=== PATIENT | female | born 1935 | race Caucasian/White ===

== ENCOUNTER 2018-05-12 00:47 | Inpatient (IN) | payer MEDICARE, MEDICAID, SELFPAY ==
[2018-05-12] VITALS (18 sets, daily range): BP systolic 116–150; BP diastolic 50–125; PULSE 74–99; RESP 16–24; TEMP 36.4–37.1; O2SAT 92–98; BMI 37.5; BMI 36.8; BMI 36.9
--- NOTE | 2018-05-12 01:19 | ED.VIS.GEN ---
History of Present Illness Chief Complaint: Chest Pain Informant: Patient Onset: Hours - 2 Context: Sudden Onset - at rest Quality: Indigestion. Nonpleuritic. Nonradiating. Location: Substernal Current Severity: Mild Maximum Severity: Moderate Worsened by: Nothing Relieved by: Nothing Associated Symptoms: Palpitations skipping/racing, dyspnea Narrative: Patient states she was on the way here from [place] by car. She started having symptoms suddenly, the first symptoms she noticed was heart skipping and racing, which she has never felt before. She has a history of A. fib and does not have any symptoms from that. She felt near syncopal but did not lose consciousness. This was closely followed by substernal chest discomfort and dyspnea. The palpitations were a single episode, lasted several minutes, and resolved, and after that the chest discomfort and dyspnea improved but have not resolved. She has had swelling in her legs for the past 2 weeks or so, she has a history of heart failure but does not know her ejection fraction, she does not have a pacemaker or defibrillator. She does not get any medical care here, she is from [place]. She is on a full aspirin daily, no anticoagulants. She has COPD and for the past week she has been coughing more, bringing up more sputum, that is yellow, green, white at times. No fevers. No GI symptoms. - Past Medical History (1) COPD (chronic obstructive pulmonary disease) Status: Chronic (2) CHF (congestive heart failure) Status: Chronic (3) CAD (coronary artery disease), [place] coronary artery Status: Chronic (4) HTN (hypertension) Status: Chronic Past Medical History - Allergies and Home Meds Allergies/Adverse Reactions: Allergies erythromycin base Adverse Reaction (Verified 05/12/18 02:19) Upset Stomach heparin Adverse Reaction (Verified 05/12/18 00:52) Other Primary Care Physician: [facility],Out of [Primary Care Provider] - Alcohol: None Drugs: None Review of Systems All systems negative except as indicated General: Reports: Malaise - generally weak acutely, - - near-syncopal. Denies: Chills, Fever Cardiovascular: Reports: Chest pain, Palpitations, Heart racing Respiratory: Reports: Dyspnea, Cough, Sputum, Orthopnea - chronic Gastrointestinal: Denies: Abdominal pain, Nausea, Vomiting, Diarrhea Genitourinary: Denies: Dysuria, Hematuria Musculoskeletal: Reports: Swelling. Denies: Neck pain, Back pain, Extremity Pain Neurological: Denies: Headache, Weakness, Parasthesia Physical Exam Vital Signs/Narrative: Vital Signs Temp Pulse Resp BP Pulse Ox 05/12/18 00:49 98.6 F 97 18 150/125 H 92 Inital Vital Signs reviewed: Yes General: Well nourished, Well developed Head: Normocephalic, Atraumatic Eyes: Perrl, EOMI ENT: Moist mucous membranes, No rhinorrhea Neck: Supple, Nontender Cardiovascular: No murmurs, Irregular, Tachycardia Respiratory: No distress, Chest nontender, Rhonchi - bibasilar, Diminished - throughout, symmetric Abdomen: Soft, Nontender, Nondistended, Normal bowel sounds Back: Nontender, Normal Inspection Extremities: Nontender - incl no calf tend, Edema - 2+ BLE Skin: Normal color, No rash Neurological: Alert, Oriented x3, Cranial nerves II-XII grossly intact, Normal Strength, Normal Sensation Psychological: Normal affect Diagnostic/Tx/Re-eval Impressions Chest X-Ray 05/12/18 01:12 IMPRESSION: No acute findings in the lungs. Mild increased interstitial markings in the right lung Electronically Signed: Peng Hobbs, at 2:18 EDT Tel , Service support , 05/12/18 01:12 Chest 1 View (Portable) [RAD] Stat Laboratory Results 05/12/18 05/12/18 Range/Units 01:45 01:45 WBC 7.9 (4.4-11.0) K/mm3 RBC 4.13 L (4.2-5.4) M/mm3 Hgb 10.3 L (12.0-15.0) g/dl Hct 34.8 L (37-47) % MCV 84.3 (81-99) fL MCH 24.9 L (27.0-32.0) pg MCHC 29.6 L (32-36) g/gl RDW 18.6 H (11.6-14.6) % RDW Differential 57.2 H (35.1-43.9) fl Plt Count 117 L (150-450) K/mm3 MPV 10.7 (6.2-12.0) fl Immature Gran % (Auto) 0.100 (0.0-0.9) % Neut % (Auto) 42.8 L (47-70) % Lymph % (Auto) 33.9 (19-41) % [place] % (Auto) 20.7 H (0-10) % Eos % (Auto) 2.4 (0-5) % Baso % (Auto) 0.1 (0-1) % Absolute Neuts (auto) 3.4 (2.0-7.7) X10^3/uL Absolute Lymphs (auto) 2.68 (0.83-4.51) X10^3/ul Total Counted Not Reportable Differential Comment SCANNED Sodium 136 (136-145) mmol/L Potassium 2.8 L (3.5-5.1) mmol/L Chloride 93 L (98-107) mmol/L Carbon Dioxide 36.0 H (21.0-32.0) mmol/L Anion Gap 7 (5-15) BUN 52 H (7-18) mg/dL Creatinine 1.41 H (0.55-1.02) mg/dL Estim Creat Clear Calc 26.11 ml/min Est GFR (MDRD) Af Amer 46 L (>60) mL/min Est GFR (MDRD) Non-Af 38 L (>60) mL/min BUN/Creatinine Ratio 36.9 H (10-20) RATIO Glucose 188 H (74-106) mg/dL Calcium 9.2 (8.5-10.1) mg/dL Troponin I 0.038 (<0.045) ng/mL - Rhythm Strip Rhythm Strip: A-fib Rate: 110 Ectopy: PVC(s) - EKG Initial EKG Interpretation: No Acute Injury Pattern, Atrial Fibrillation, Non-Specific ST Changes, - - ant Q waves. nml axis. Prior: No Prior - Medical Decision Making Patient remains clinically and hemodynamically stable. Her labs show a slightly elevated troponin, there is no acute injury pattern on the EKG which shows chronic A. fib, borderline RVR but not to the point where we needed to treat it aggressively to keep her rate under control. She is feeling much better with regards to how she was earlier. I think admission is warranted. Discussed with Dr. Richter who is amenable. She also has a COPD exacerbation given her history for the past week, so she was given an aerosol which helped a little with regards to her dyspnea, however her acute symptoms tonight sounded associated with palpitations and a near syncopal episode. Certainly a transient dysrhythmia other than her chronic A. fib is in the differential, as it is simply RVR. Will be admitted for further evaluation. ED Disposition - Plan for ED Patient: Disposition: Acute Care Hospital [facility] Chief Complaint: Chest Pain Diagnosis: Near syncope, Palpitations, Chronic atrial fibrillation, CHF (congestive heart failure), CAD (coronary artery disease), false pass coronary artery, Renal insufficiency, Hypokalemia Referrals: [facility],Out of [Primary Care Provider] -
--- NOTE | 2018-05-12 01:23 | ED.RN ---
NO OLD EKG'S IN MUSE
[2018-05-12] MEDS: Albuterol 2.5 MG/3 ML VIAL.NEB. INHALATION (01:25)
[2018-05-12] MEDS: Aspirin 81 MG TAB.CHEW 324 MG PO (01:46)
[2018-05-12] MEDS: Furosemide 40 MG/4 ML Vial 20 MG IV (01:49)
[2018-05-12] MEDS: 0.9% Normal Saline 1,000 ML 15 ML IV (01:57)
[2018-05-12 02:05] LABS: Absolute Lymphocyte Count 2.68 X10^3/ul (0.83-4.51); Absolute Neutrophil Count 3.4 X10^3/uL (2.0-7.7); Basophil# 0.01 X10^3/uL; Basophil% 0.1 % (0-1); Differential Indicated SCAN CRITERIA MET; Eosinophil# 0.19 X10^3/uL; Eosinophils% 2.4 % (0-5); Hematocrit 34.8 % (37-47); Hemoglobin 10.3 g/dl (12.0-15.0); Lymphocyte # 2.68 X10^3/ul (4.0); Lymphocyte % 33.9 % (19-41); Mean Corp Hgb Conc 29.6 g/gl (32-36); Mean Corpuscular Hgb 24.9 pg (27.0-32.0); Mean Corpuscular Volume 84.3 fL (81-99); Mean Platelet Vol. 10.7 fl (6.2-12.0); Monocyte# 1.64 X10^3/uL; Monocyte% 20.7 % (0-10); Neutrophil # 3.38 X10^3/uL (2.7-7.7); Neutrophil % 42.8 % (47-70); POSITIVE COUNT NO; POSITIVE DIFFERENTIAL YES; POSITIVE MORPHOLOGY NO; Platelet Count 117 K/mm3 (150-450); RBC Distribution Width CV 18.6 % (11.6-14.6); RBC Distribution Width SD 57.2 fl (35.1-43.9); Red Blood Count 4.13 M/mm3 (4.2-5.4); White Blood Count 7.9 K/mm3 (4.4-11.0)
[2018-05-12 02:19] LABS: Anion Gap 7 (5-15); BUN 52 mg/dL (7-18); BUN/Creat Ratio 36.9 RATIO (10-20); Calcium,Total 9.2 mg/dL (8.5-10.1); Chloride 93 mmol/L (98-107); Creatinine, Serum 1.41 mg/dL (0.55-1.02); EST Glomerular Filtration Rate 38 mL/min (>60); Est Glom Filt Rate - Afr Amer 46 mL/min (>60); Estimated Creatinine Clearance 26.11 ml/min; Glucose 188 mg/dL (74-106); Potassium 2.8 mmol/L (3.5-5.1); Sodium Level 136 mmol/L (136-145)
[2018-05-12 02:26] LABS: Differential Comment SCANNED
--- NOTE | 2018-05-12 02:53 | PCM.HP.STD ---
History of Present Illness Date of Admission: 05/12/18 Chief Complaint: chest pain The patient is a 82 year old female patient with a past medical history of coronary artery disease, obesity, osteoarthritis and COPD who presents to the ER with chest pain. She was being transported from [place] by her cousins to live here in [place] at a new [facility] [facility]. She experienced heart palpitations and lightheadedness on the trip so they diverted from to the ER for evaluation .She developed chest pain that responded to nitro glycerin times one. The patient is a questionable historian but does have medical records on disk with her. She is unable to tell me when her last heart catheterization was but she does admit to previous PR and chronic atrial fibrillation for which she only takes aspirin. She will be admitted and cycle cardiac markers. Past Medical History Past Medical History (Chronic Problems): Chronic Problems COPD (chronic obstructive pulmonary disease) (Chronic) CHF (congestive heart failure) (Chronic) CAD (coronary artery disease), [place] coronary artery (Chronic) HTN (hypertension) (Chronic) Allergies erythromycin base Adverse Reaction (Verified 05/12/18 02:19) Upset Stomach heparin Adverse Reaction (Verified 05/12/18 00:52) Other Home Medications: Ambulatory Orders Medication Instructions Recorded Acetaminophen [Tylenol Extra 500 mg PO Q4H PRN PRN 05/12/18 Strength] Albuterol IH (ProAir) [Proair Hfa 2 puff INHALATION Q4H PRN PRN 05/12/18 (SP)Vent Pts] Aspirin 325 mg PO DAILY@0800 05/12/18 Atorvastatin Calcium [Lipitor] 40 mg PO QHS 05/12/18 Carboxymethylcellulose Sodium 2 each OP DAILY PRN 05/12/18 [Refresh Celluvisc] Carvedilol [Coreg] 12.5 mg PO BID 05/12/18 Cholecalciferol (Vitamin D3) 2,000 unit PO DAILY 05/12/18 [Vitamin D3] D-Mannose [Mannose] 500 mg PO DAILY 05/12/18 Docusate Sodium [Colace] 50 mg PO DAILY 05/12/18 Estrogens, Conjugated [Premarin] 1 dose VAGINAL 05/12/18 Fluticasone/Salmeterol [Advair 1 each IH BID 05/12/18 250-50 Diskus] Glucosamine/MSM/Chondroitin A 1 each PO DAILY 05/12/18 [Glucosamine Chondroit MSM Tab] Ipratropium/Albuterol Sulfate 3 ml INHALATION Q6H.RT PRN 05/12/18 [Duoneb] Lansoprazole [Prevacid] 30 mg PO DAILY 05/12/18 Levothyroxine [Synthroid] 25 mcg PO DAILY 05/12/18 Metolazone [Zaroxolyn] 2.5 mg PO QWEEK 05/12/18 Paroxetine HCl 40 mg PO DAILY 05/12/18 Polyethylene Glycol 3350 [Miralax] 17 gm PO DAILY 05/12/18 Potassium Chloride [Klor-Con M20] 20 meq PO DAILY 05/12/18 Spironolactone [Aldactone] 25 mg PO DAILY 05/12/18 Tiotropium [place] [Spiriva] 18 mcg IH DAILY 05/12/18 Torsemide [Demadex] 60 mg PO BID 05/12/18 traMADol [Ultram (G)] 100 mg PO Q6H PRN PRN 05/12/18 Smoking Status: Former smoker Alcohol: None Drugs: None - *Family History Maternal History Items: No pertinent history Review of Systems Constitutional: Reports: Weakness. Denies: Chills, Fever, Weight Change HEENT: Denies: Head Aches, Sinus Congestion, Sinus Drainage Cardiovascular: Reports: Chest Pain, Light Headedness, Palpitations Respiratory: Denies: Cough, Shortness of breath at rest, Sputum production Gastrointestinal: Denies: Abdominal Pain, Nausea, Vomiting Genitourinary: Reports: Incontinence. Denies: Dysuria Musculoskeletal: Denies: Joint Pain, Joint Tenderness Skin: Denies: Rash, Wounds Neurological: Denies: Numbness, Tingling, Focal weakness Psychiatric: Denies: Anxiety, Depression, Homicidal Ideations, Suicidal Ideations Hematologic/ Lymphatic: Denies: Easy Bruising, Easy Bleeding VTE Information - Inpt Only VTE Present on Admission: No VTE Mechan Device Prophylaxis: SCD's VTE Pharm Prophylaxis ordered?: No - Physical Exam General: Alert, Oriented x3, Cooperative HEENT: Atraumatic, Normocephalic Neck: Supple Lungs: Clear to auscultation, Normal air movement, No rhonchi, No wheeze Cardiovascular: Normal S1, Normal S2, No murmurs, Irregular Rate Abdomen: Bowel Sounds Present, Soft, Non Tender, Obese Extremities: Capillary Refill Less than 3 Seconds, Edema - 1+lower ext edema Skin: No rashes, No breakdown Musculoskeletal: No Tenderness to Palpation of Joints or Extremities Neurological: Neuro grossly intact Psych/Mental Status: Normal Affect, Appropriate Vital Signs Temp Pulse Resp BP Pulse Ox 98.6 F 90 24 H 121/56 H 93 05/12/18 00:49 05/12/18 01:49 05/12/18 01:25 05/12/18 01:49 05/12/18 01:25 Oxygen Flow Rate (L/min) 5 Oxygen Delivery Method Nasal Cannula Weight: 218 lb 11.177 oz Body Mass Index (BMI) 37.5 Laboratory Tests Past 24 Hrs 05/12/18 05/12/18 05/12/18 01:45 01:45 01:45 WBC 7.9 RBC 4.13 L Hgb 10.3 L Hct 34.8 L MCV 84.3 MCH 24.9 L MCHC 29.6 L RDW 18.6 H RDW Differential 57.2 H Plt Count 117 L MPV 10.7 Immature Gran % (Auto) 0.100 Neut % (Auto) 42.8 L Lymph % (Auto) 33.9 [place] % (Auto) 20.7 H Eos % (Auto) 2.4 Baso % (Auto) 0.1 Absolute Neuts (auto) 3.4 Absolute Lymphs (auto) 2.68 Total Counted Not Reportable Differential Comment SCANNED Sodium 136 Potassium 2.8 L Chloride 93 L Carbon Dioxide 36.0 H Anion Gap 7 BUN 52 H Creatinine 1.41 H Estim Creat Clear Calc 26.11 Est GFR (MDRD) Af Amer 46 L Est GFR (MDRD) Non-Af 38 L BUN/Creatinine Ratio 36.9 H Glucose 188 H Calcium 9.2 Troponin I 0.038 B-Natriuretic Peptide Pending Assessment/Plan Assessment - chest pain Chronic conditions - COPD - Obesity - hypertension - CAD - atrial fibrillation Plan - admit to progressive care unit - tramadol, oxygen, aspirin and nitro prn - cycle cardiac markers - consult Dr. Cooley - NPO except meds with sips pending consult - IV normal saline at 75cc/hour - continue routine medications - LMWH for DVT prophylaxis Code Visit Inpatient E&M: 77509 Init Hosp L3
--- NOTE | 2018-05-12 03:13 | NURSING ---
05/12/18 0303 ER primer charger called, ok to send pt.
[2018-05-12 03:15] LABS: BNP,B-Type NATRIURETIC PEPTIDE 202.7 pg/mL (0-100)
[2018-05-12 05:40] LABS: International Normalized Ratio 1.3; Prothrombin Time (Protime)PT. 16.1 SECONDS (11.7-14.9)
[2018-05-12 05:45] LABS: Partial Thromboplast Time 37.1 Seconds (24.1-36.2)
[2018-05-12 06:15] LABS: ALB/GLOB Ratio 0.9 RATIO (0.9-2.4); AST(SGOT) 18 U/L (15-37); Alanine Aminotransfer ALT/SGPT 13 U/L (13-56); Albumin, Serum 3.6 g/dL (3.2-5.0); Alkaline Phosphatase 105 U/L (45-117); Anion Gap 12 (5-15); BUN 51 mg/dL (7-18); BUN/Creat Ratio 36.2 RATIO (10-20); Calcium,Total 9.1 mg/dL (8.5-10.1); Chloride 93 mmol/L (98-107); Cholesterol 108 mg/dL (200); Creatinine, Serum 1.41 mg/dL (0.55-1.02); EST Glomerular Filtration Rate 38 mL/min (>60); Est Glom Filt Rate - Afr Amer 46 mL/min (>60); Estimated Creatinine Clearance 26.11 ml/min; Globulin 4.1 g/dL (2.2-4.2); Glucose 158 mg/dL (74-106); High Density Lipoprotein 44 mg/dL; Potassium 2.9 mmol/L (3.5-5.1); Protein, Total 7.7 g/dL (6.4-8.2); Sodium Level 138 mmol/L (136-145); Thyroid Stim Hormone (TSH) 4.76 uIU/mL (0.358-3.74); Triglycerides 85 mg/dL; Very Low Density Lipoprotein 17 mg/dL (5-40)
[2018-05-12] MEDS: Levothyroxine 25 MCG TABLET PO (06:42)
--- NOTE | 2018-05-12 07:27 | PCM.CONS.C ---
Reason for Consult Date of Consultation: 05/12/18 Reason for Consultation: Chest pain History of Present Illness: The patient is a 82 year old F with a known significant cardiac history who was recently been followed up at the clinic in [place]. She was relocating to [place]. On the current drive here she developed some chest pain for which she took a sublingual nitroglycerin which resolved it. She was mildly short of breath and she decided to present to the emergency room where based on history sheet it was decided to admit her. Her past medical history is significant for chronic persistent atrial fibrillation for which she only takes aspirin. She had previously been on Coumadin but did not want to take it. She also has a history of hypertension, ischemic cardiomyopathy, coronary artery disease not amenable to intervention, pulmonary hypertension, hyperlipidemia, type 2 diabetes, morbid obesity and nonhealing ulcers due to venous stasis. She was last seen in the heart failure clinic in [place] on April 07, 2018. Has not had any recent palpitations or paroxysmal nocturnal dyspnea. She has been compliant with her medications. Her pertinent past cardiac history is significant for an echocardiogram in January of this year which demonstrated an ejection fraction of 55-60% the right ventricle was moderately hypokinetic. There was mild mitral regurgitation and right ventricular systolic pressures were noted to be over 60 mmHg. In October of last year she underwent a right and left heart catheterization. The right ventricular systolic pressures were noted to be 72/14, pulmonary artery pressures of 76/35 mmHg and a pulmonary wedge pressure of 19 mmHg with a V wave of 23 mmHg. Her cardiac catheterization demonstrated left main coronary artery which was large and gave rise to a heavily calcified left anterior descending artery. There was 30-40% proximal stenosis and 60% distal stenosis. The left anterior descending artery was a large vessel which was heavily calcified proximal vessel had severe disease in the mid segment was totally occluded. The first diagonal branch had collateral flow with severe diffuse disease. The ramus intermedius was a medium-sized vessel with a 90% proximal stenosis in the circumflex artery was a large vessel giving rise to 2 obtuse marginal branches after which it continued in the AV groove branch. The ostium of the circumflex artery had a 50% stenosis the first OM had a 30% proximal stenosis and the second 150% stenosis. The right coronary artery was a large dominant vessel with a 40% ostial stenosis in the mid segment had diffuse calcific disease. It was felt that the patient was not a candidate for percutaneous intervention and was referred to CT surgery but was not thought to be a great candidate and medical therapy was chosen as the option. This was discussed once again with the patient who is quite knowledgeable with her history as well as her therapy and is in agreement with this. [] Past Medical History Allergies/Adverse Reactions: Allergies erythromycin base Adverse Reaction (Verified 05/12/18 02:19) Upset Stomach fentanyl Adverse Reaction (Verified 05/12/18 02:54) Other SEVERE LETHARGY heparin Adverse Reaction (Verified 05/12/18 00:52) Other Home Medications: Ambulatory Orders Medication Instructions Recorded Acetaminophen [Tylenol Extra 500 mg PO Q4H PRN PRN 05/12/18 Strength] Albuterol IH (ProAir) [Proair Hfa 2 puff INHALATION Q4H PRN PRN 05/12/18 (SP)Vent Pts] Aspirin 325 mg PO DAILY@0800 05/12/18 Atorvastatin Calcium [Lipitor] 40 mg PO QHS 05/12/18 Carboxymethylcellulose Sodium 2 each OP DAILY PRN 05/12/18 [Refresh Celluvisc] Carvedilol [Coreg] 12.5 mg PO BID 05/12/18 Cholecalciferol (Vitamin D3) 2,000 unit PO DAILY 05/12/18 [Vitamin D3] D-Mannose [Mannose] 500 mg PO DAILY 05/12/18 Docusate Sodium [Colace] 50 mg PO DAILY 05/12/18 Estrogens, Conjugated [Premarin] 1 dose VAGINAL 05/12/18 Fluticasone/Salmeterol [Advair 1 each IH BID 05/12/18 250-50 Diskus] Glucosamine/MSM/Chondroitin A 1 each PO DAILY 05/12/18 [Glucosamine Chondroit MSM Tab] Ipratropium/Albuterol Sulfate 3 ml INHALATION Q6H.RT PRN 05/12/18 [Duoneb] Lansoprazole [Prevacid] 30 mg PO DAILY 05/12/18 Levothyroxine [Synthroid] 25 mcg PO DAILY 05/12/18 Metolazone [Zaroxolyn] 2.5 mg PO QWEEK 05/12/18 Paroxetine HCl 40 mg PO DAILY 05/12/18 Polyethylene Glycol 3350 [Miralax] 17 gm PO DAILY 05/12/18 Potassium Chloride [Klor-Con M20] 20 meq PO DAILY 05/12/18 Spironolactone [Aldactone] 25 mg PO DAILY 05/12/18 Tiotropium [place] [Spiriva] 18 mcg IH DAILY 05/12/18 Torsemide [Demadex] 60 mg PO BID 05/12/18 traMADol [Ultram (G)] 100 mg PO Q6H PRN PRN 05/12/18 Past Medical History (Chronic Problems): Chronic Problems COPD (chronic obstructive pulmonary disease) (Chronic) CHF (congestive heart failure) (Chronic) CAD (coronary artery disease), [place] coronary artery (Chronic) HTN (hypertension) (Chronic) - *Family History Maternal History Items: No pertinent history Smoking Status: Former smoker Alcohol: None Drugs: None Review of Systems - Review of Systems General: Denies: Fever, Night Sweats, Fatigue Cardiovascular: Reports: Chest Discomfort at Rest, Peripheral Edema. Denies: Chest Discomfort, Shortness of Breath, Orthopnea, PND, Palpitations, Lightheadedness, Dizziness, Near Syncope, Syncope Respiratory: Denies: Cough, Sputum Production, Hemoptysis Gastrointestinal: Denies: Hematemesis, Hematochezia, Melena Genitourinary: Denies: Dysuria, Hematuria Skin: Denies: Rash Subjectve: Pleasant lady in no apparent distress Objective: Vital Signs Temp Pulse Resp BP Pulse Ox 97.9 F 92 20 H 149/50 H 97 05/12/18 04:11 05/12/18 04:20 05/12/18 04:11 05/12/18 04:14 05/12/18 04:11 Oxygen Flow Rate (L/min) 5 Oxygen Delivery Method Nasal Cannula Weight: 216 lb 0.848 oz Body Mass Index (BMI) 36.8 Intake and Output for Last 24 Hours 05/10/18 05/11/18 05/12/18 23:59 23:59 23:59 Intake Total 100 / 100 Balance 100 / 100 General: Awake, Alert, Oriented x 3 HEENT: PERRL, EOMI, Sclera Non Icteric Neck: Supple, Good ROM, No Lymph Node Enlargement Lungs: Clear to auscultation Cardiovascular: Irregular Rhythm, Normal S1, Normal S2, No Rubs, No Gallops Murmur Murmur: Grade 2/6, Holosystolic, RLSB Vascular: No Carotid Bruits, Normal Femoral Pulses, Normal Radial Pulses, Normal Dorsalis Pedal Pulse, Normal Posterior Tibial Pulses Abdomen: Bowel Sounds Present, Soft, Non Tender, No HSM, No Organomegaly Extremities: No Cyanosis, No Clubbing, No edema Neurological: No Focal Motor or Sensory Deficit 05/12/18 05:04: PT 16.1 H, INR 1.3 05/12/18 05:04: Sodium 138, Potassium 2.9 L, Chloride 93 L, Carbon Dioxide 33.0 H, Anion Gap 12, BUN 51 H, Creatinine 1.41 H, Est GFR (MDRD) Af Amer 46 L, Est GFR (MDRD) Non-Af 38 L, BUN/Creatinine Ratio 36.2 H, Glucose 158 H, Calcium 9.1, Total Bilirubin 0.50, Direct Bilirubin 0.20, Troponin I 0.035, Triglycerides 85, Cholesterol 108, LDL Cholesterol 47, VLDL Cholesterol 17, HDL Cholesterol 44 05/12/18 05:04: APTT 37.1 H Rhythm: EKG: Atrial fibrillation with a controlled ventricular response rate of 94 bpm. Assessment/Plan 1. Chest pain with mildly abnormal cardiac enzymes Patient presents with chest pain with mildly abnormal cardiac enzymes. The patient is noted to have severe coronary artery disease as noted above which has not been amenable to intervention either percutaneously or surgically. At this time it appears that she only had one episode of brief discomfort with minimal cardiac troponin enzyme elevation and my recommendation would be for us to continue with aggressive medical therapy. After discussion with her she also cites her age and her comorbidities and does not think that pursuing any invasive therapy at this time will be worthwhile. Would recommend the addition of nitrates to her current regimen. 2. Diastolic heart failure Patient appears to have diastolic heart failure and is on a combination of diuretics as well as diet and this will be continued in the face of her mild renal dysfunction to make sure she remains euvolemic. She appears to be [place] Heart Association class II and ACC heart failure stage C The etiology appears to be multifactorial related to coronary artery disease, hypertension, and atrial fibrillation. 3. Coronary artery disease Patient has known coronary artery disease which is not amenable to surgical or percutaneous intervention Will continue with aggressive medical therapy at this particular time. 4. Pulmonary hypertension Patient has pulmonary hypertension likely secondary to obesity hypoventilation syndrome This will be rechecked with the echocardiogram and pulmonary pressures measured and her diuretics adjusted as appropriate. 5. Systemic hypertension Patient has known systemic hypertension and will be continued on her current medical therapy. 6. Atrial fibrillation Patient has persistent atrial fibrillation. She has refused anticoagulation in the past though she has an elevated chads score. She is aware of the risks being undertaken with the above. Thank you for allowing me to participate in the care of this lady. We will attempt to make her relocation to the [facility] smooth.
[2018-05-12] MEDS: Budesonide Respules 0.5 MG/2 ML AMPUL.NEB. INHALATION ×2 (07:54→21:17)
[2018-05-12] MEDS: traMADol 50 MG Tablet 100 MG PO ×2 (09:41→21:44)
[2018-05-12] MEDS: Polyethylene Glycol 3350 17 GM PACKET PO (09:41)
[2018-05-12] MEDS: Docusate Sodium 100 MG/10 ML UDC 50 MG PO (09:42)
[2018-05-12] MEDS: Acetaminophen 500 MG Tablet PO ×2 (09:42→21:42)
[2018-05-12] MEDS: Aspirin 325 MG Tablet PO (09:43)
[2018-05-12] MEDS: Spironolactone 25 MG Tablet PO (09:43)
[2018-05-12] MEDS: Pantoprazole Sodium 40 MG Tablet PO (09:43)
[2018-05-12] MEDS: Isosorbide Mononitrate 60 MG Tablet PO (09:43)
[2018-05-12] MEDS: Carvedilol 25 MG Tablet PO ×2 (09:43→21:45)
[2018-05-12] MEDS: Furosemide 20 MG Tablet 60 MG PO ×2 (09:43→21:42)
[2018-05-12 13:00] LABS: Anion Gap 11 (5-15); BUN 49 mg/dL (7-18); BUN/Creat Ratio 34.3 RATIO (10-20); Calcium,Total 9.2 mg/dL (8.5-10.1); Chloride 96 mmol/L (98-107); Creatinine, Serum 1.43 mg/dL (0.55-1.02); EST Glomerular Filtration Rate 37 mL/min (>60); Est Glom Filt Rate - Afr Amer 45 mL/min (>60); Estimated Creatinine Clearance 25.74 ml/min; Glucose 190 mg/dL (74-106); Potassium 3.7 mmol/L (3.5-5.1); Sodium Level 136 mmol/L (136-145)
--- NOTE | 2018-05-12 13:27 | PCM.PROGNOTE ---
<Marisa Canales - Last Filed: 05/12/18 13:41> Patient Problems: Active and Suspected Problems Near syncope (Acute) Palpitations (Acute) Chronic atrial fibrillation (Acute) Renal insufficiency (Acute) Hypokalemia (Acute) Subjective: Patient seen and examined. Denies further chest pain. Denies other symptoms. States that her is her goal to be admitted to [facility] [place], [facility]. - Physical Exam General: Alert, Oriented x3, Cooperative, No apparent distress HEENT: Atraumatic, PERRLA, EOMI, Normocephalic Neck: Supple, No JVD, Negative Carotid Bruits Lungs: Clear to auscultation, Normal air movement Cardiovascular: - - A. fib, rate controlled Abdomen: Bowel Sounds Present, Soft, Non Tender, Non-Distended, Obese Extremities: No clubbing, No cyanosis, No edema, Capillary Refill Less than 3 Seconds Skin: No rashes, No breakdown Musculoskeletal: No Tenderness to Palpation of Joints or Extremities Neurological: Cranial nerves II-XII grossly intact, Neuro grossly intact Psych/Mental Status: Normal Affect, Appropriate Vital Signs Temp Pulse Resp BP Pulse Ox 97.8 F 87 18 116/51 L 96 05/12/18 09:41 05/12/18 11:05 05/12/18 09:41 05/12/18 09:41 05/12/18 09:41 Oxygen Flow Rate (L/min) 5 Oxygen Delivery Method Nasal Cannula Weight: 216 lb 0.848 oz Body Mass Index (BMI) 36.8 Intake and Output for Last 24 Hours 05/10/18 05/11/18 05/12/18 23:59 23:59 23:59 Intake Total 460 / 460 Balance 460 / 460 Laboratory Tests Past 24 Hrs 05/12/18 05/12/18 05/12/18 05:04 05:04 05:04 PT 16.1 H INR 1.3 APTT 37.1 H Sodium 138 Potassium 2.9 L Chloride 93 L Carbon Dioxide 33.0 H Anion Gap 12 BUN 51 H Creatinine 1.41 H Estim Creat Clear Calc 26.11 Est GFR (MDRD) Af Amer 46 L Est GFR (MDRD) Non-Af 38 L BUN/Creatinine Ratio 36.2 H Glucose 158 H Calcium 9.1 Total Bilirubin 0.50 Direct Bilirubin 0.20 AST 18 ALT 13 Alkaline Phosphatase 105 Troponin I 0.035 Total Protein 7.7 Albumin 3.6 Globulin 4.1 Albumin/Globulin Ratio 0.9 Triglycerides 85 Cholesterol 108 LDL Cholesterol 47 VLDL Cholesterol 17 HDL Cholesterol 44 TSH 4.76 H 05/12/18 05/12/18 07:40 12:20 PT INR APTT Sodium 136 Potassium 3.7 Chloride 96 L Carbon Dioxide 29.0 Anion Gap 11 BUN 49 H Creatinine 1.43 H Estim Creat Clear Calc 25.74 Est GFR (MDRD) Af Amer 45 L Est GFR (MDRD) Non-Af 37 L BUN/Creatinine Ratio 34.3 H Glucose 190 H Calcium 9.2 Total Bilirubin Direct Bilirubin AST ALT Alkaline Phosphatase Troponin I 0.036 Total Protein Albumin Globulin Albumin/Globulin Ratio Triglycerides Cholesterol LDL Cholesterol VLDL Cholesterol HDL Cholesterol TSH Medical Necessity - Tobacco Use Smoking Status: Former smoker Assessment/Plan All Active Problems Near syncope (Acute) Palpitations (Acute) Chronic atrial fibrillation (Acute) Renal insufficiency (Acute) Hypokalemia (Acute) 1. Chest pain with abnormal troponin-cardiology following. Given patient's age and comorbidities, no further invasive testing is appropriate at this time. Nitrates added to current regimen. Continue with medical management. Patient denies further chest pain. 2. CAD-not amenable to PCI. Continue medical management with aspirin, statin, carvedilol. 3. Chronic atrial fibrillation-rate controlled. On aspirin only. Continue aspirin, carvedilol. 4. COPD-no acute exacerbation. Albuterol and DuoNeb aerosol. 5. Osteoarthritis- PRN tylenol. PT/OT. 6. Hypertension-stable, continue current regimen. 7. Chronic suspected diastolic CHF-no acute exacerbation. On torsemide 60 mg twice daily. 8. Depression-continue home paroxetine regimen. 9. Hypothyroidism-continue Synthroid. 10. GERD-continue PPI. 11. Hyperlipidemia-continue statin. 12. Chronic kidney disease stage III-stable, trend BMP. 13. Hypokalemia-resolved. DVT prophylaxis- SCDs. Reported allergy to heparin. This patient was seen by AYDEN Ma under the supervision of Dr. Lane. <Yun Lane - Last Filed: 05/12/18 15:02> - Physical Exam Vital Signs Temp Pulse Resp BP Pulse Ox 97.8 F 87 18 116/51 L 96 05/12/18 09:41 05/12/18 11:05 05/12/18 09:41 05/12/18 09:41 05/12/18 09:41 Oxygen Flow Rate (L/min) 5 Oxygen Delivery Method Nasal Cannula Weight: 98 kg Body Mass Index (BMI) 36.8 Intake and Output for Last 24 Hours 05/10/18 05/11/18 05/12/18 23:59 23:59 23:59 Intake Total 460 / 460 Balance 460 / 460 Laboratory Tests Past 24 Hrs 05/12/18 05/12/18 05/12/18 05:04 05:04 05:04 PT 16.1 H INR 1.3 APTT 37.1 H Sodium 138 Potassium 2.9 L Chloride 93 L Carbon Dioxide 33.0 H Anion Gap 12 BUN 51 H Creatinine 1.41 H Estim Creat Clear Calc 26.11 Est GFR (MDRD) Af Amer 46 L Est GFR (MDRD) Non-Af 38 L BUN/Creatinine Ratio 36.2 H Glucose 158 H Calcium 9.1 Total Bilirubin 0.50 Direct Bilirubin 0.20 AST 18 ALT 13 Alkaline Phosphatase 105 Troponin I 0.035 Total Protein 7.7 Albumin 3.6 Globulin 4.1 Albumin/Globulin Ratio 0.9 Triglycerides 85 Cholesterol 108 LDL Cholesterol 47 VLDL Cholesterol 17 HDL Cholesterol 44 TSH 4.76 H 05/12/18 05/12/18 07:40 12:20 PT INR APTT Sodium 136 Potassium 3.7 Chloride 96 L Carbon Dioxide 29.0 Anion Gap 11 BUN 49 H Creatinine 1.43 H Estim Creat Clear Calc 25.74 Est GFR (MDRD) Af Amer 45 L Est GFR (MDRD) Non-Af 37 L BUN/Creatinine Ratio 34.3 H Glucose 190 H Calcium 9.2 Total Bilirubin Direct Bilirubin AST ALT Alkaline Phosphatase Troponin I 0.036 Total Protein Albumin Globulin Albumin/Globulin Ratio Triglycerides Cholesterol LDL Cholesterol VLDL Cholesterol HDL Cholesterol TSH Assessment/Plan Patient was seen and examined. I agree with interval history and physical exam and assessment and plan as documented by Marisa Canales. Patient denies any new complaints. Complains of her Spiriva and Advair being held, Denies SOB, chest pain, dizziness, palpitations. Vitals reviewed, stable Labs reviewed. Physical exam is significant for slightly diminshed lung sounds at the lung bases, Trace bilateral edema few crackles heard Meds reviewed Appreciate cardiology input. Code Visit Inpatient E&M: 34294 Subs Hosp L2
--- NOTE | 2018-05-12 14:49 | CASEMGMT ---
SW met with patient, introduced self and role at [facility]. Patient said she moved here from [place] last night to move into [facility]. She has family members here that will be able to come and visit her. She told SW she has [employer] and she had [place] Medicaid. SW called registration with patient's correct insurance information. SW called patient's insurance and there are no facilities hospital or SNF that are in network with her insurance. She has no out of network benefits. SW spoke with patient and told her this information. She said she will just have to go on her Medicare. SW told her SW will have to call Medicare to see how this works. SW tried to call Medicare, but they will not talk with SW even with patient giving verbal permission. SW was told by the Medicare mechanical service representative that she can only hold for 2 minutes. SW told her SW is in patient's room right now. She said it is a 3 minute process to get verbal and written permission to talk with SW. SW will have patient call Medicare. SW told patient she will need to call Medicare to see how this process works as they will not talk with SW. SW checked back with patient after awhile and she was talking with [facility] and they said they will cancel her insurance and she will go on straight Medicare. This will not take place until the end of April. Medicare guidelines indicate insurance cannot cancel her insurance until the end of the month. Patient was going to call Medicare. ALETA spoke with Sydnee at [facility] and they would not be able to take patient on pending Medicaid. SW will talk with patient to see what her plan will be. Kavitha SANCHEZ
--- NOTE | 2018-05-12 15:38 | CASEMGMT ---
SW spoke with patient and let her know that she will likely have to go to a detention on pending Medicaid. SW also told her that SW spoke with Sydnee at [facility] and they would not be willing to take her on pending Medicaid. She said she is going to sign up for [facility]. She said everything is just like she said to begin with. She said that [facility] will pay for days 1-20. ALETA told her [facility] does not have contracts with insurance companies yet so they would not be able to take her on [facility]. SW told her they can take straight Medicare and straight Medicaid. She said she won't sign up for [facility] then and just go with straight Medicare. SW told her she will likely have to go to a different detention on her pending Medicaid. She told SW she doesn't know who SW is talking with at [facility], but it must be someone different than who they have been talking with. SW told her SW has been talking with Sydnee and that is who they have been talking with. She said she is going to make some phone calls. At this point patient's option is to complete a Medicaid application and allow SW to find a facility that will take her on pending Medicaid as [facility] will not. Kavitha ADDISON MSW
[2018-05-12] MEDS: Carvedilol 12.5 MG Tablet PO (21:42)
[2018-05-12] MEDS: Atorvastatin Calcium 40 MG Tablet PO (21:42)
[2018-05-13] VITALS (15 sets, daily range): BP systolic 115–130; BP diastolic 42–75; PULSE 81–101; RESP 16–20; TEMP 36.3–37; O2SAT 91–97
[2018-05-13 06:13] LABS: Anion Gap 12 (5-15); BUN 42 mg/dL (7-18); BUN/Creat Ratio 33.6 RATIO (10-20); Calcium,Total 9.3 mg/dL (8.5-10.1); Chloride 99 mmol/L (98-107); Creatinine, Serum 1.25 mg/dL (0.55-1.02); EST Glomerular Filtration Rate 44 mL/min (>60); Est Glom Filt Rate - Afr Amer 53 mL/min (>60); Estimated Creatinine Clearance 29.45 ml/min; Glucose 138 mg/dL (74-106); Potassium 3.3 mmol/L (3.5-5.1); Sodium Level 141 mmol/L (136-145)
[2018-05-13] MEDS: Budesonide Respules 0.5 MG/2 ML AMPUL.NEB. INHALATION ×2 (07:06→19:38)
--- NOTE | 2018-05-13 07:50 | PCM.PN.CARD ---
Subjectve: Patient seen and evaluated. Objective: Vital Signs Temp Pulse Resp BP Pulse Ox 98.1 F 92 16 119/42 L 95 05/13/18 03:15 05/13/18 07:08 05/13/18 03:15 05/13/18 03:15 05/13/18 03:15 Oxygen Flow Rate (L/min) 4.5 Oxygen Delivery Method Nasal Cannula Weight: 216 lb 0.848 oz Body Mass Index (BMI) 36.8 Intake and Output for Last 24 Hours 05/11/18 05/12/18 05/13/18 23:59 23:59 23:59 Intake Total 900 / 900 200 / 200 Output Total 100 / 100 Balance 800 / 800 200 / 200 General: Awake, Alert, Oriented x 3 HEENT: PERRL, EOMI, Sclera Non Icteric Neck: Supple, Good ROM, No Lymph Node Enlargement Lungs: Clear to auscultation Cardiovascular: Regular Rhythm, Normal S1, Normal S2, No Rubs, No Gallops Murmur Murmur: Grade 2/6, Holosystolic, RLSB Vascular: No Carotid Bruits, Normal Femoral Pulses, Normal Radial Pulses, Normal Dorsalis Pedal Pulse, Normal Posterior Tibial Pulses Abdomen: Bowel Sounds Present, Soft, Non Tender, No HSM, No Organomegaly Extremities: No Cyanosis, No Clubbing, No edema Neurological: No Focal Motor or Sensory Deficit 05/12/18 07:40: Troponin I 0.036 05/12/18 12:20: Sodium 136, Potassium 3.7, Chloride 96 L, Carbon Dioxide 29.0, Anion Gap 11, BUN 49 H, Creatinine 1.43 H, Est GFR (MDRD) Af Amer 45 L, Est GFR (MDRD) Non-Af 37 L, BUN/Creatinine Ratio 34.3 H, Glucose 190 H, Calcium 9.2 05/13/18 05:24: Sodium 141, Potassium 3.3 L, Chloride 99, Carbon Dioxide 30.0, Anion Gap 12, BUN 42 H, Creatinine 1.25 H, Est GFR (MDRD) Af Amer 53 L, Est GFR (MDRD) Non-Af 44 L, BUN/Creatinine Ratio 33.6 H, Glucose 138 H, Calcium 9.3 Rhythm: EKG: ECHO: Stress Test: Cardiac Cath: PCI: CT Surgery: Holter monitor: EPS: PPM: CXR: Chest CT Scan: Medical Necessity - Tobacco Use Smoking Status: Former smoker Assessment/Plan 1. Chest pain with mildly abnormal cardiac enzymes Patient presents with chest pain with mildly abnormal cardiac enzymes. The patient is noted to have severe coronary artery disease as noted above which has not been amenable to intervention either percutaneously or surgically. At this time it appears that she only had one episode of brief discomfort with minimal cardiac troponin enzyme elevation and my recommendation would be for us to continue with aggressive medical therapy. After discussion with her she also cites her age and her comorbidities and does not think that pursuing any invasive therapy at this time will be worthwhile. Would recommend nitrates to her current regimen. 2. Diastolic heart failure Patient appears to have diastolic heart failure and is on a combination of diuretics as well as diet and this will be continued in the face of her mild renal dysfunction to make sure she remains euvolemic. She appears to be [place] Heart Association class II and ACC heart failure stage C The etiology appears to be multifactorial related to coronary artery disease, hypertension, and atrial fibrillation. 3. Coronary artery disease Patient has known coronary artery disease which is not amenable to surgical or percutaneous intervention Will continue with aggressive medical therapy at this particular time. 4. Pulmonary hypertension Patient has pulmonary hypertension likely secondary to obesity hypoventilation syndrome Echocardiogram demonstrated severe pulmonary hypertension with pulmonary to systolic pressures over 100 mmHg. 5. Systemic hypertension Patient has known systemic hypertension and will be continued on her current medical therapy. 6. Atrial fibrillation Patient has persistent atrial fibrillation. She has refused anticoagulation in the past though she has an elevated chads score. She is aware of the risks being undertaken with the above. Thank you for allowing me to participate in the care of this lady. We will attempt to make her relocation to the [facility] smooth. Follow-up visit will be scheduled in my office. From the cardiac standpoint no further medication changes will be advocated at this time.
--- NOTE | 2018-05-13 08:59 | CASEMGMT ---
ALETA spoke with patient this am. She said her cousin is going to talk with Sydnee at [facility] today. She does not understand why they won't take her on pending Medicaid. SW asked her if she would like to complete a Medicaid application and she said she did already, but her cousin cannot find it. She told SW to leave the application and she will fill it out. SW will continue to talk with patient to work out a d/c plan. At this time the only option is to go somewhere on pending Medicaid. However, this means she would not be able to go to [facility] and the patient does not like that. Kavitha ADDISON MSW
[2018-05-13] MEDS: Levothyroxine 25 MCG TABLET PO (10:01)
[2018-05-13] MEDS: Aspirin 325 MG Tablet PO (10:01)
[2018-05-13] MEDS: Spironolactone 25 MG Tablet PO (10:02)
[2018-05-13] MEDS: traMADol 50 MG Tablet 100 MG PO ×2 (10:02→17:51)
[2018-05-13] MEDS: Pantoprazole Sodium 40 MG Tablet PO (10:02)
[2018-05-13] MEDS: Acetaminophen 500 MG Tablet PO ×2 (10:02→17:51)
[2018-05-13] MEDS: Isosorbide Mononitrate 60 MG Tablet PO (10:03)
[2018-05-13] MEDS: Carvedilol 25 MG Tablet PO ×2 (10:03→21:37)
[2018-05-13] MEDS: Furosemide 20 MG Tablet 60 MG PO ×2 (10:03→21:37)
[2018-05-13] MEDS: Polyethylene Glycol 3350 17 GM PACKET PO (10:06)
--- NOTE | 2018-05-13 12:44 | CASEMGMT ---
ALETA called patient's cousin, Ivana. She confirmed they have not located patient's Medicaid application she completed. ALETA explained situation to her regarding insurance etc. ALETA told her the only option now is for her to go to a longterm on pending Medicaid and [facility] is not willing to take her on this. She understands this as she spoke with [facility]. She asked where patient could go. ALETA told her SW will have to call around and talk with local facilities to see if they are willing to take her on pending Medicaid. ALETA told her this is not easy as many nursing homes do not want to take patient's on pending Medicaid. ALETA told her SW will try and locate a facility and let them know. ALETA called [facility] with referral and faxed over information. SW will check with patient to see if she completed Medicaid application SW gave her. Kavitha ADDISON MSW
--- NOTE | 2018-05-13 14:17 | CASEMGMT ---
ALETA faxed patient's Medicaid application to [employer] [facility] [employer]. Spoke with Su at [facility] and the application number is [id number]. ALETA will continue to work on finding a facility that will take patient on pending Medicaid. Kavitha SANCHEZ
--- NOTE | 2018-05-13 14:33 | PCM.PROGNOTE ---
<Marisa Canales - Last Filed: 05/13/18 14:38> Patient Problems: Active and Suspected Problems Near syncope (Acute) Palpitations (Acute) Chronic atrial fibrillation (Acute) Renal insufficiency (Acute) Hypokalemia (Acute) Subjective: Patient seen and examined. No further chest pain. Denies other symptoms. Social work working with patient on placement to SNF. - Physical Exam General: Alert, Oriented x3, Cooperative, No apparent distress HEENT: Atraumatic, PERRLA, EOMI, Normocephalic Neck: Supple, No JVD, Negative Carotid Bruits Lungs: Clear to auscultation, Normal air movement Cardiovascular: - - Atrial for ablation, rate controlled Abdomen: Bowel Sounds Present, Soft, Non Tender, Non-Distended, Obese Extremities: No clubbing, No cyanosis, No edema, Capillary Refill Less than 3 Seconds Skin: No rashes, No breakdown Musculoskeletal: No Tenderness to Palpation of Joints or Extremities Neurological: Cranial nerves II-XII grossly intact Psych/Mental Status: Normal Affect, Appropriate Vital Signs Temp Pulse Resp BP Pulse Ox 98.2 F 81 18 130/75 H 94 05/13/18 09:15 05/13/18 11:03 05/13/18 09:15 05/13/18 09:15 05/13/18 09:15 Oxygen Flow Rate (L/min) 4 Oxygen Delivery Method Nasal Cannula Weight: 216 lb 0.848 oz Body Mass Index (BMI) 36.8 Intake and Output for Last 24 Hours 05/11/18 05/12/18 05/13/18 23:59 23:59 23:59 Intake Total 900 / 900 680 / 680 Output Total 100 / 100 Balance 800 / 800 680 / 680 Laboratory Tests Past 24 Hrs 05/13/18 05:24 Sodium 141 Potassium 3.3 L Chloride 99 Carbon Dioxide 30.0 Anion Gap 12 BUN 42 H Creatinine 1.25 H Estim Creat Clear Calc 29.45 Est GFR (MDRD) Af Amer 53 L Est GFR (MDRD) Non-Af 44 L BUN/Creatinine Ratio 33.6 H Glucose 138 H Calcium 9.3 Medical Necessity - Tobacco Use Smoking Status: Former smoker Assessment/Plan All Active Problems Near syncope (Acute) Palpitations (Acute) Chronic atrial fibrillation (Acute) Renal insufficiency (Acute) Hypokalemia (Acute) 1. Chest pain with abnormal troponin-cardiology following. Given patient's age and comorbidities, no further invasive testing is appropriate at this time. Nitrates added to current regimen. Continue with medical management. Patient denies further chest pain. 2. CAD-not amenable to PCI. Continue medical management with aspirin, statin, carvedilol. 3. Chronic atrial fibrillation-rate controlled. On aspirin only. Continue aspirin, carvedilol. 4. COPD-no acute exacerbation. Albuterol and DuoNeb aerosol. 5. Osteoarthritis- PRN tylenol. PT/OT. 6. Hypertension-stable, continue current regimen. 7. Chronic suspected diastolic CHF-no acute exacerbation. On torsemide 60 mg twice daily. 8. Depression-continue home paroxetine regimen. 9. Hypothyroidism-continue Synthroid. 10. GERD-continue PPI. 11. Hyperlipidemia-continue statin. 12. Chronic kidney disease stage III-stable, trend BMP. 13. Hypokalemia-resolved. DVT prophylaxis- SCDs. Reported allergy to heparin. Discharge planning: Stable for discharge pending accepting facility, social work involved. This patient was seen by AYDEN Ma under the supervision of Dr. Lane. <Yun Lane - Last Filed: 05/13/18 16:51> - Physical Exam Vital Signs Temp Pulse Resp BP Pulse Ox 97.3 F L 101 H 18 128/65 H 94 05/13/18 15:15 05/13/18 15:15 05/13/18 15:15 05/13/18 15:15 05/13/18 15:15 Oxygen Flow Rate (L/min) 4 Oxygen Delivery Method Nasal Cannula Weight: 98 kg Body Mass Index (BMI) 36.8 Intake and Output for Last 24 Hours 05/11/18 05/12/18 05/13/18 23:59 23:59 23:59 Intake Total 900 / 900 680 / 680 Output Total 100 / 100 Balance 800 / 800 680 / 680 Laboratory Tests Past 24 Hrs 05/13/18 05:24 Sodium 141 Potassium 3.3 L Chloride 99 Carbon Dioxide 30.0 Anion Gap 12 BUN 42 H Creatinine 1.25 H Estim Creat Clear Calc 29.45 Est GFR (MDRD) Af Amer 53 L Est GFR (MDRD) Non-Af 44 L BUN/Creatinine Ratio 33.6 H Glucose 138 H Calcium 9.3 Assessment/Plan Patient was seen and examined. I agree with interval history and physical exam and assessment and plan as documented by Marisa Canales. Patient denies any new complaints. Denies SOB, chest pain, dizziness, palpitations. Vitals reviewed, stable Labs reviewed. Physical exam is significant for slightly diminshed lung sounds at the lung bases, Trace bilateral edema Meds reviewed Code Visit Inpatient E&M: 64770 Subs Hosp L2
--- NOTE | 2018-05-13 15:54 | CASEMGMT ---
Addendum entered by Kavitha Reyes 05/13/18 16:10: ALETA called [facility] with referral as well as faxed over information. Kavitha SANCHEZ Original Note: Patient is now insisting that her Medicare is active right now. SW told her that is not how it works. She said her [facility] [place] should cover her chcf. SW told her that this is not possible as there is no one in [place] that is in network and per her insurance she has no out of network benefits. She told SW that her Medicare is active and they cannot deny her. SW told her she is not being denied by Medicare, it is just that changes do not take place until the first of the next month. She continued to argue with ALETA that is not accurate. SW told her SW will check on this. ALETA then called [facility] Health Insurance Information Program and asked if a patient moved to another state and wants to change to straight Medicare would this take place immediately. ALETA was told the change will take place the first of the next month. ALETA then called Medicare and asked the same question and was again told that the change does not take place immediately, but rather the first of the next month. ALETA will continue to work on placement on pending Medicaid. Kavitha SANCHEZ
[2018-05-14] VITALS (7 sets, daily range): BP systolic 98–130; BP diastolic 49–74; PULSE 80–105; RESP 16–18; TEMP 36.1–37.2; O2SAT 90–98
[2018-05-14 06:50] LABS: Anion Gap 10 (5-15); BUN 38 mg/dL (7-18); BUN/Creat Ratio 27.7 RATIO (10-20); Calcium,Total 9.3 mg/dL (8.5-10.1); Chloride 99 mmol/L (98-107); Creatinine, Serum 1.37 mg/dL (0.55-1.02); EST Glomerular Filtration Rate 39 mL/min (>60); Est Glom Filt Rate - Afr Amer 47 mL/min (>60); Estimated Creatinine Clearance 26.87 ml/min; Glucose 134 mg/dL (74-106); Potassium 3.9 mmol/L (3.5-5.1); Sodium Level 141 mmol/L (136-145)
[2018-05-14] MEDS: Budesonide Respules 0.5 MG/2 ML AMPUL.NEB. INHALATION (07:05)
--- NOTE | 2018-05-14 08:18 | CPS ---
upon entering room pt was 87% on 5 lpm sleeping. after waking pt up,performing smi with pt,and pt talking saturation came up to 90-92%. nurse aware
[2018-05-14] MEDS: Spironolactone 25 MG Tablet PO (09:03)
[2018-05-14] MEDS: Carvedilol 25 MG Tablet PO (09:03)
[2018-05-14] MEDS: Aspirin 325 MG Tablet PO (09:03)
[2018-05-14] MEDS: Furosemide 20 MG Tablet 60 MG PO (09:04)
[2018-05-14] MEDS: Isosorbide Mononitrate 60 MG Tablet PO (09:04)
[2018-05-14] MEDS: Pantoprazole Sodium 40 MG Tablet PO (09:05)
[2018-05-14] MEDS: Levothyroxine 25 MCG TABLET PO (09:06)
[2018-05-14] MEDS: traMADol 50 MG Tablet 100 MG PO (09:14)
[2018-05-14] MEDS: Acetaminophen 500 MG Tablet PO (09:14)
--- NOTE | 2018-05-14 11:03 | PCM.TXEXTCAR ---
- Diet 05/12/18 06:59 Diet: Cardiac/Low Cholesterol Is pt able to select menu?: No Fluid restrictions - Routine Orders/Code Status O2 Liters per Minute: 5 O2 Frequency: Continuous Keep PO Greater than or Equal to (%): 94 Routine Lab Work: CBC - within 3 days, BMP - within 3 days - Therapies Weight Bearing: Weight bearing as tolerated Extremity Affected:: Bilateral Lower Physical Therapy: Eval and Treat Occupational Therapy: Eval and Treat - Allergies/Procedures Done in Hospital Allergies/Adverse Reactions: Allergies erythromycin base Adverse Reaction (Verified 05/12/18 02:19) Upset Stomach fentanyl Adverse Reaction (Verified 05/12/18 02:54) Other SEVERE LETHARGY heparin Adverse Reaction (Verified 05/12/18 00:52) Other Procedures: 2-D Echocardiogram - Type of Care/Length of Stay Estimated LOS: Convalescent Care Less Than 30 days Type of Care Needed: Skilled Rehab Potential: Fair Prognosis: Good - Additional Orders/Day of Discharge Additional Orders: Has nocturnal hypoxia. Needs outpatient sleep study to be set-up to help diagnose OLMAN. Day of Discharge: 05/14/18 - Dietary and Speech Recommendations Dietitian Recommendations/Changes: Rec cardiac, low sodium diet w/ fluid restriction as indicated. - Follow Up Care Primary Care Physician: Manuela Martins,Out of [NON-STAFF] - Please follow up with your Primary Care Physician in: within 2 weeks after discharge
--- NOTE | 2018-05-14 11:07 | PCM.DC.SUM ---
Discharge Date and Diagnosis Date of Admission: 05/12/18 Date of Discharge: 05/14/18 - Primary Discharge Diagnosis Active and Suspected Problems Near syncope (Acute) Palpitations (Acute) Chronic atrial fibrillation (Acute) Renal insufficiency (Acute) Hypokalemia (Acute) - Secondary Discharge Diagnosis Chronic Problems COPD (chronic obstructive pulmonary disease) (Chronic) CHF (congestive heart failure) (Chronic) CAD (coronary artery disease), [place] coronary artery (Chronic) HTN (hypertension) (Chronic) Hospital Course and Treatment Imaging Results: Clinical Impression(s) from Imaging Studies Chest X-Ray 05/12/18 01:12 IMPRESSION: No acute findings in the lungs. Mild increased interstitial markings in the right lung Electronically Signed: Peng GlassmusaRach, at 2:18 EDT Tel , Service support , Cardiology Operations: None Procedures: 2-D Echocardiogram Summary of Care Provided: The patient is a 82 year old F with past medical history of CAD, status post cardiac cath, not amendable to intervention, resultant ischemic cardiomyopathy, COPD, on 2 L home oxygen, obesity, osteoarthritis, who was coming to [place] from [place] to live in a new care home in [place]. She is said to have experienced palpitations and lightheadedness on the trip so they diverted to the ED for evaluation. Patient developed chest pain that responded to nitro ?1. Her cardiac cath done in October 2016 showed RVSP of 72/14, 30-40% proximal stenosis of the LAD, heavily calcified LAD, distal 60% stenosis. Patient was scheduled to be a candidate for percutaneous intervention. She was referred to CT surgery but was told also not to be a good candidate. Medical management was recommended. She had very minimal elevation in her troponin to 0.038 and 0.036. Her BNPep was 202.7 She was seen by cardiology who made recommendations of addition of nitrates to her current regimen. Patient was followed by case management and finally discharged to a long term facility. Follow up with pulmonology in the outpatient as well as cardiology Discharge Diet: Low fat/ Low Cholesterol, 2000 mg Sodium Diet Discharge Activity: Return to Normal Activity Home Medications: Medications to take at Discharge Acetaminophen [Tylenol] 500 mg PO Q4H PRN PRN 05/12/18 Albuterol IH (ProAir) [Proair Hfa] 2 puff INHALATION Q4H PRN PRN 05/12/18 Aspirin 325 mg PO DAILY@0800 05/12/18 Atorvastatin Calcium [Lipitor] 40 mg PO QHS 05/12/18 Carboxymethylcellulose Sodium [Refresh Celluvisc] 2 each OP DAILY PRN 05/12/18 Cholecalciferol (Vitamin D3) [Vitamin D3] 2,000 unit PO DAILY 05/12/18 Docusate Sodium [Colace] 50 mg PO DAILY 05/12/18 Estrogens, Conjugated [Premarin] 1 dose VAGINAL 05/12/18 Fluticasone/Salmeterol [Advair 250-50 Diskus] 1 each IH BID 05/12/18 Glucosamine/MSM/Chondroitin A [Glucosamine Chondroit MSM Tab] 1 each PO DAILY 05/12/18 Ipratropium/Albuterol Sulfate [Duoneb] 3 ml INHALATION Q6H.RT PRN 05/12/18 Lansoprazole [Prevacid] 30 mg PO DAILY 05/12/18 Levothyroxine [Synthroid] 25 mcg PO DAILY 05/12/18 Paroxetine HCl 40 mg PO DAILY 05/12/18 Polyethylene Glycol 3350 [Miralax] 17 gm PO DAILY 05/12/18 Potassium Chloride [Klor-Con M20] 20 meq PO DAILY 05/12/18 Spironolactone [Aldactone] 25 mg PO DAILY 05/12/18 Tiotropium Gunter [Spiriva] 18 mcg IH DAILY 05/12/18 Carvedilol [Coreg (Beta Basilio)] 25 mg PO BID tablet 05/14/18 Furosemide [Lasix] 60 mg PO BID #30 tablet 05/14/18 Isosorbide Mononitrate [Imdur] 60 mg PO DAILY tablet 05/14/18 traMADol [Ultram] 100 mg PO Q6H PRN PRN #20 tab 05/14/18 Following Prescrptions Were Given to Patient: traMADol [Ultram] 100 mg PO Q6H PRN PRN #20 tab PRN Reason: Pain Primary Care Physician: Manuela Doctor,Out of [NON-STAFF] - Please follow up with your Primary Care Physician in: within 2 weeks after discharge Disposition: Penitentiary facility Minutes spent on discharge:: 40 Patient Condition:: Stable Medical Necessity - Tobacco Use Smoking Status: Former smoker Meaningful Use Info Meaningful Use Diagnoses (Choose all that apply): None applicable Code Visit Inpatient E&M: 82458 Subs Hosp L2
--- NOTE | 2018-05-14 11:53 | CASEMGMT ---
ALETA received phone call from Ana Colon at [facility]. They will accept patient. ALETA notified physician. Orders were faxed to [facility]. PASRR was completed. ALETA called [facility] and spoke with Lucila in the billing office. ALETA explained situation and she said they could transport on pending Medicaid. She said patient may get a bill, but she would not have to pay it and she will put in the system that it is pending Medicaid. ALETA called patient's cousin, Ivana and told her what ALETA had worked out. She was very thankful ALETA was able to find a facility. ALETA told her about transport, but they wanted to transport her to avoid any bill issues. They do not know how to get to [facility] so ALETA told them SW will have directions for them. ALETA notified patient of above information and she was fine with the plan. Plan: [facility] under intermediate level of care on a PASRR. Family transported patient via private vehicle. Kavitha ADDISON MSW
--- NOTE | 2018-05-14 12:24 | CASEMGMT ---
Addendum entered by Kavitha Reyes 05/14/18 14:03: ALETA called [facility] and canceled transport. Awaiting level of care and family. Kavitha SANCHEZ Original Note: ALETA faxed information to [facility] to obtain a level of care. ALETA also called Enid Li at [facility] to let her know this information and that patient will be leaving today. Kavitha ADDISON MSW
--- NOTE | 2018-05-14 14:38 | CASEMGMT ---
ALETA called Enid Li at [facility] to check on level of care. She said they are obligated to verify in the system that a Medicaid application was completed. Currently the system has been shut down and will not be back up until Friday. She said they cannot issue a level of care. She said patient can go to [facility] on the [facility] and they can submit for a level of care later. ALETA told her SW will check with [facility] and then let her know. ALETA called [facility] and spoke with Naye. ALETA explained situation and she checked with their application administrator and they are okay with this. 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 ALETA called Enid Li at [facility] and left her a voice mail letting her know this information. Plan: d/c to [facility] under intermediate level of care on a PASRR. Family to transport patient. Kavitha ADDISON MSW
--- NOTE | 2018-05-14 15:34 | CASEMGMT ---
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 ALETA called Jocelyne at [facility] and let her know this information. ALETA also notified rim fire charger operator. ALETA wrote out directions to get to [facility] for patient's cousin. ALETA put these directions with patient's packet and notified rim fire charger operator of this. Kavitha ADDISON MSW
== END 2018-05-14 16:42 | disposition intermediate care facility (04) | DRG 303 ==
LOC: ED 02:54 → PCU 03:00
PROVIDERS: Internal Medicine Cardiovascular Disease; Nurse Practitioner Family; Admitting Provider Family Medicine; Emergency Provider Emergency Medicine; Visit Provider Internal Medicine
DX: I25.119 Atherosclerotic heart disease of native coronary artery with unspecified angina pectoris (principal); I13.0 Hypertensive heart and chronic kidney disease with heart failure and stage 1 through stage 4 chronic kidney disease, or unspecified chronic kidney disease; I50.32 Chronic diastolic (congestive) heart failure; I48.2 Chronic atrial fibrillation; E87.6 Hypokalemia; J44.9 Chronic obstructive pulmonary disease, unspecified; I25.10 Atherosclerotic heart disease of native coronary artery without angina pectoris; N18.3 Chronic kidney disease, stage 3 (moderate); I25.5 Ischemic cardiomyopathy; M19.90 Unspecified osteoarthritis, unspecified site; I27.20 Pulmonary hypertension, unspecified; R00.2 Palpitations; R55 Syncope and collapse; E03.9 Hypothyroidism, unspecified; E78.5 Hyperlipidemia, unspecified; Z87.891 Personal history of nicotine dependence; E66.9 Obesity, unspecified; Z68.36 Body mass index [BMI] 36.0-36.9, adult; Z79.82 Long term (current) use of aspirin
CPT/HCPCS: 36415; 71045; 80048; 80053; 80061; 82248; 83880; 84443; 84484; 85025; 85610; 85730; 93005; 93306; 94640; 97162; 97166; 97530; 97802; 99283; J7030; A4216; J1940